=== PATIENT | male | born 1960 | race Caucasian/White ===

== ENCOUNTER 2016-11-14 11:42 | Emergency (ER) | payer OTHER | END 2016-11-14 13:30 | disposition home or self-care (01) | LOC: ER1 11:42 | DX: S83.92XA Sprain of unspecified site of left knee, initial encounter (principal); M25.462 Effusion, left knee; F17.210 Nicotine dependence, cigarettes, uncomplicated; X58.XXXA Exposure to other specified factors, initial encounter | CPT/HCPCS: 73564; 99283 ==

== ENCOUNTER 2016-11-15 06:17 | Emergency (ER) | payer OTHER | END 2016-11-15 08:55 | disposition home or self-care (01) | LOC: ER1 06:17 | DX: M25.462 Effusion, left knee (principal); Z88.5 Allergy status to narcotic agent | CPT/HCPCS: 99283 ==

== ENCOUNTER 2016-11-28 18:49 | Emergency (ER) | payer OTHER | END 2016-11-28 21:13 | disposition home or self-care (01) | LOC: ER1 18:49 | DX: S83.92XA Sprain of unspecified site of left knee, initial encounter (principal); F17.210 Nicotine dependence, cigarettes, uncomplicated; X58.XXXA Exposure to other specified factors, initial encounter; Z88.5 Allergy status to narcotic agent | CPT/HCPCS: 99283 ==

== ENCOUNTER 2017-01-29 20:44 | Emergency (ER) | payer OTHER | END 2017-01-29 22:25 | disposition home or self-care (01) | LOC: ER1 20:44 | DX: L02.411 Cutaneous abscess of right axilla (principal); F17.210 Nicotine dependence, cigarettes, uncomplicated; Z88.5 Allergy status to narcotic agent | CPT/HCPCS: 10061; 87070; 87077; 87186; 87205; 99283 ==

== ENCOUNTER → 2020-11-10 | Outpatient (CLI) | payer OTHER ==
[~2020-11-10] MED LIST: DOXYCYCLINE HY100 MG PO; IBUPROFEN600 MG PO; LOW DOSE ASPIRI81 MG PO; PREDNISONE 20 M20 MG PO; PROVENTIL HFA6.7 GM INH
== END ==
LOC: CT 09:58
DX: F17.210 Nicotine dependence, cigarettes, uncomplicated (principal)
CPT/HCPCS: 71271

== ENCOUNTER 2021-03-21 00:40 | Emergency (ER) | payer OTHER ==
[~2021-03-21 00:40] MED LIST changes: -DOXYCYCLINE HY100 MG PO; -PREDNISONE 20 M20 MG PO; -PROVENTIL HFA6.7 GM INH
[2021-03-21] MEDS ORDERED: PROVENTIL HFA6.7 GM INH (19:22)
[2021-03-21] MEDS ORDERED: DOXYCYCLINE HY100 MG PO (19:22)
[2021-03-21] MEDS ORDERED: PREDNISONE 20 M20 MG PO (19:22)
== END 2021-03-21 02:14 | disposition left against medical advice (07) ==
LOC: ER1 00:40
DX: Z53.21 Procedure and treatment not carried out due to patient leaving prior to being seen by health care provider (principal)

== ENCOUNTER 2021-03-21 15:17 | Emergency (ER) | payer OTHER ==
[2021-03-21 16:10] LABS: HEMOGLOBIN 16.5 gm/dl (14.0-17.5); RED BLOOD COUNT 4.92 M/UL (4.20-5.50)
[2021-03-21 16:31] LABS: BUN/CREATININE RATIO 12 (0-10)
[2021-03-21] MEDS ORDERED: PREDNISONE 20 M20 MG PO (19:22)
[2021-03-21] MEDS ORDERED: PROVENTIL HFA6.7 GM INH (19:22)
[2021-03-21] MEDS ORDERED: DOXYCYCLINE HY100 MG PO (19:22)
== END 2021-03-21 19:35 | disposition home or self-care (01) ==
LOC: ER1 15:17
PROVIDERS: Emergency Medicine
DX: J44.0 Chronic obstructive pulmonary disease with (acute) lower respiratory infection (principal); J44.1 Chronic obstructive pulmonary disease with (acute) exacerbation; J18.9 Pneumonia, unspecified organism; Z20.822 Contact with and (suspected) exposure to COVID-19; F17.200 Nicotine dependence, unspecified, uncomplicated; Z88.8 Allergy status to other drugs, medicaments and biological substances
CPT/HCPCS: 71045; 80053; 82550; 82553; 83874; 84484; 85025; 93005; 94664; 99285; U0002

== ENCOUNTER 2021-06-12 17:02 | Emergency (ER) | payer OTHER ==
[~2021-06-12 17:02] MED LIST changes: +DOXYCYCLINE HY100 MG PO; +PREDNISONE 20 M20 MG PO; +PROVENTIL HFA6.7 GM INH
[2021-06-12 18:20] LABS: HEMOGLOBIN 17.2 gm/dl (14.0-17.5); RED BLOOD COUNT 5.09 M/UL (4.20-5.50); WHITE BLOOD COUNT 9.8 K/UL (4.5-11.0)
[2021-06-12 18:32] LABS: BUN/CREATININE RATIO 13 (0-10)
[2021-06-12] MEDS ORDERED: PREDNISONE 20 M20 MG PO (21:13)
[2021-06-12] MEDS ORDERED: CYCLOBENZAPRINE5 MG PO (21:13)
== END 2021-06-12 21:45 | disposition home or self-care (01) ==
LOC: ER1 17:02
PROVIDERS: Emergency Medicine
DX: M51.16 Intervertebral disc disorders with radiculopathy, lumbar region (principal); F17.200 Nicotine dependence, unspecified, uncomplicated
CPT/HCPCS: 72131; 72170; 73562; 73590; 73701; 80053; 85025; 86140; 93971; 96374; 99284; J1885; Q9967

== ENCOUNTER 2021-07-02 22:24 | Emergency (ER) | payer OTHER ==
[~2021-07-02 22:24] MED LIST changes: +CYCLOBENZAPRINE5 MG PO
[2021-07-03] MEDS ORDERED: CLEOCIN HCL150 MG PO (00:31)
[2021-07-03] MEDS ORDERED: HYDROCODON-ACE1 EAC4 PO ×2 (00:31→00:46)
== END 2021-07-03 01:00 | disposition home or self-care (01) ==
LOC: ER1 22:24
DX: M65.9 Synovitis and tenosynovitis, unspecified (principal); F17.200 Nicotine dependence, unspecified, uncomplicated
CPT/HCPCS: 73130; 99283

== ENCOUNTER → 2022-02-17 | Outpatient (CLI) | payer MEDICARE ==
[~2022-02-17] MED LIST changes: +CLEOCIN HCL150 MG PO; +HYDROCODON-ACE1 EAC4 PO
== END ==
LOC: KOH-I 11:00
DX: F17.210 Nicotine dependence, cigarettes, uncomplicated (principal)
CPT/HCPCS: 71271